=== PATIENT | male | born 1985 | race Two or more races ===

== ENCOUNTER 2024-01-17 12:50 | Inpatient (IN) | payer OTHER ==
[~2024-01-17] VITALS: Ht 165.1 cm; Wt 63.6 kg
[2024-01-17] MEDS ORDERED: VITA100093 PO (16:29)
[2024-01-17] MEDS ORDERED: TERB250T90 PO (16:29)
[2024-01-17] MEDS ORDERED: HOME MED LIST COMPLETE! XX SCH (16:30)
[2024-01-17] MEDS ORDERED: MOM 30ML SUSPENSION UDC PO PRN (23:35)
[2024-01-17] MEDS ORDERED: diphenhydrAMINE 25MG CAP PO PRN (23:35)
[2024-01-17] MEDS ORDERED: traZODone 50 MG TAB PO PRN (23:35)
[2024-01-17] MEDS ORDERED: MAALOX 30 ML SUSP *UDC PO PRN (23:35)
[2024-01-17] MEDS ORDERED: IBUPROFEN 400MG TAB PO PRN (23:35)
[2024-01-17] MEDS ORDERED: ACETAMINOPHEN TAB 650MG DOSE (2X325MG) PO PRN (23:35)
[2024-01-17 23:52] VITALS: BP 144/80; TEMP 98; O2SAT 98
[2024-01-18 14:36] VITALS: BP 142/87; TEMP 97.5; O2SAT 97
[2024-01-19 06:16] VITALS: BP 138/89; TEMP 98.3; O2SAT 100
== END 2024-01-19 14:21 | disposition home or self-care (01) | DRG 882 ==
LOC: M ED 12:50 → M ED INP 23:32 → M PSY 23:52
PROVIDERS: ADMIT Psychiatry & Neurology Psychiatry; ATTEND Psychiatry & Neurology Psychiatry
DX: F43.23 Adjustment disorder with mixed anxiety and depressed mood (principal); R45.851 Suicidal ideations; Z79.899 Other long term (current) drug therapy; Z63.79 Other stressful life events affecting family and household; Z86.15 Personal history of latent tuberculosis infection; R45.850 Homicidal ideations

== ENCOUNTER 2024-02-02 22:22 | Emergency (ER) | payer OTHER, SELFPAY ==
[~2024-02-02] VITALS: Ht 165.1 cm; Wt 62.7 kg
[~2024-02-02 22:22] MED LIST: TERB250T90 PO; VITA100093 PO
[2024-02-03] MEDS: IBUPROFEN 800 MG TAB PO ONE (04:00)
[2024-02-03 04:50] VITALS: BP 134/67; TEMP 98; O2SAT 97
== END 2024-02-03 04:51 | disposition home or self-care (01) ==
LOC: M ED 22:22
DX: S23.3XXA Sprain of ligaments of thoracic spine, initial encounter (principal); M54.2 Cervicalgia; X58.XXXA Exposure to other specified factors, initial encounter; Y92.9 Unspecified place or not applicable; Y93.9 Activity, unspecified; Y99.9 Unspecified external cause status; Z79.899 Other long term (current) drug therapy